=== PATIENT | male | born 1945 | race Caucasian/White ===

== ENCOUNTER 2020-08-14 12:00 | Outpatient (RCR) | payer MEDICARE, SELFPAY ==
[2015-08-06 17:18] VITALS: BMI 27.8
[2020-08-14] MEDS: COVID-19 VACC, MRNA(PFIZER)/PF 30 MCG/0.3 ML SYRINGE IM (10:37)
[2020-09-04] MEDS: COVID-19 VACC, MRNA(PFIZER)/PF 30 MCG/0.3 ML SYRINGE IM (10:20)
== END 2020-11-11 23:59 ==
LOC: IMMUN 12:00
PROVIDERS: Visit Provider Family Medicine
DX: Z23 Encounter for immunization (principal)
CPT/HCPCS: 0001A; 0002A; 91300

== ENCOUNTER 2025-02-05 20:02 | Observation (INO) | payer MEDICARE, MEDICAID, SELFPAY ==
[2025-02-05] VITALS (13 sets, daily range): BP systolic 120–199; BP diastolic 82–100; PULSE 79–91; RESP 13–18; TEMP 36.8; O2SAT 78–100; BMI 27.8
--- NOTE | 2025-02-05 20:07 | EKG12_ITS ---
Test Reason : CP Blood Pressure : */* mmHG Vent. Rate : 85 BPM Atrial Rate : 85 BPM P-R Int : 232 ms QRS Dur : 102 ms QT Int : 384 ms P-R-T Axes : 74 13 42 degrees QTcB Int : 456 ms Sinus rhythm with sinus arrhythmia with 1st degree A-V block Otherwise normal ECG Confirmed by Alon Hogue ([id number]), editorial specialist VIKTOR BURRELL ([id number]) on 02/06/2025 10:34:25 AM Referred By: Confirmed By: Alon Hogue
--- NOTE | 2025-02-05 20:25 | RAD_ITS ---
PROCEDURE: CHEST PA AND LATERAL 02/05/2025 REASON FOR EXAM: CHEST PAIN TECHNIQUE: Procedure Code: RADCXR Modality: DX Procedure: CHEST PA AND LATERAL COMPARISON: none FINDINGS: No focal consolidation. No pleural effusion or pneumothorax. Cardiac silhouette is within normal limits. No acute fractures. RAD/Chest PA and Lateral IMPRESSION: No focal consolidations. Reading Location: [facility]
--- NOTE | 2025-02-05 20:54 | CT_ITS ---
PROCEDURE: CTA CHST, ABD, PEL W AND/OR WO 02/05/2025 REASON FOR EXAM: UPPER BACK PAIN, UPPER ABD PAIN, HTN TECHNIQUE: Procedure Code: CTCTA.CHAP.2 Modality: CT Procedure: CTA CHST, ABD, PEL W AND/OR WO Coronal and Sagittal reconstruction series were provided. One or more dose reduction techniques were used (e.g., Automated exposure control, adjustment of the mA and/or kV according to patient size, use of iterative reconstruction technique. CONTRAST: Isovue 370 VOLUME: 94 mL RADIATION DOSE SUMMARY: DLP: 1097.38 mGycm COMPARISON: None available. FINDINGS: AORTA: Normal course and caliber of the aorta. No aneurysm or dissection. Mild scattered atherosclerotic calcifications. Major branch vessels are patent, normal in course and caliber. MEDIASTINUM: Unremarkable. No mass or lymphadenopathy. HEART: Normal in size. No pericardial effusion. Mild coronary artery calcifications. LUNGS/PLEURA: Clear. No airspace consolidation or findings of pulmonary edema. No pneumothorax or pleural effusions. Central airways are patent. HEPATOBILIARY: There is mild central mesenteric fat stranding in the upper midabdomen, which is potentially related to mild/early acute pancreatitis. Otherwise, no significant abnormality. No biliary or pancreatic ductal dilatation. GENITOURINARY: No urolithiasis or hydronephrosis. Few small simple appearing left renal cysts. Urinary bladder is underdistended, grossly unremarkable. Enlarged prostate. GI TRACT: Small hiatal hernia. Stomach and small bowel are otherwise unremarkable. No evidence of obstruction or active inflammatory process. Normal appendix. Moderate distal colonic diverticulosis without evidence for active diverticulitis/colitis. PERITONEUM/RETROPERITONEUM: No ascites or free air. No lymphadenopathy. MUSCULOSKELETAL: Evidence of prior left inguinal hernia repair. 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 CT/CTA Chst, Abd, Pel W and/or WO IMPRESSION: 1. No aortic aneurysm or dissection. No acute intrathoracic pathology. 2. Mild mesenteric fat stranding in the upper midabdomen which is potentially r elated to mild/early acute pancreatitis; correlate with serum amylase/lipase. Otherwise, no acute or active inflammatory intra-ab dominal pathology. 3. Small hiatal hernia. Distal colonic diverticulosis without active diverticu litis. Reading Location: [id number]
[2025-02-05 20:57] LABS: Hematocrit 44.9 % (40-54); Hemoglobin 15.5 g/dL (13.0-16.5); Immature Granulocytes Count 0.070 X10^3/uL (0.0-0.0); Mean Corp Hgb Conc 34.5 g/dL (32-36); Mean Corpuscular Volume 92.8 fL (80-94); Mean Platelet Vol. 10.5 fl (6.2-12.0); NRBC Flagged by Analyzer 0 % (0-5); Platelet Count 339 K/mm3 (150-450); RBC Distribution Width CV 13.1 % (11.6-14.6); RBC Distribution Width SD 44.3 fl (35.1-43.9); Red Blood Count 4.84 M/mm3 (4.6-6.2); White Blood Count 12.3 K/mm3 (4.4-11.0)
--- NOTE | 2025-02-05 20:57 | EX.ED.DYSGE1 ---
HPI <Dr. Alfredo Price MD - Last Filed: 02/05/25 23:18> History of Present Illness Chief Complaint: Chest Pain Informant: patient and family (Sister) Narrative Narrative: Patient presenting with spontaneous onset of mid upper back pain between his scapula that started yesterday as he got out of bed. He thought he pulled a muscle. Then today started having upper abdominal pain, he thinks that is due to constipation which he deals with daily and takes prune juice for it daily. He denies any chest discomfort, trouble breathing, or other symptoms. However the pain became really severe and he presents for evaluation because of that. He denies any numbness or tingling in his legs or arms. He denies any near syncope, palpitations, or pleuritic nature of discomfort when he takes a deep breath. It does hurt when he does certain types of twisting movements for the most part sitting up or lying back does not change the pain. It feels like it is on the inside. 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 He does not see a doctor regularly. PFSH <Dr. Alfredo Price MD - Last Filed: 02/05/25 23:18> [facility] Medical History History of stroke Home Medications ?Medication ?Instructions ?Recorded ?Last Taken ?Type No Known/Unobtainable [No Known 10/09/14 Unknown History Home Medications] Allergy/AdvReac Type Severity Reaction Status Date / Time No Known Allergies Allergy Verified 02/05/25 20:03 Social History Smoking Status: Never smoker ROS <Dr. Alfredo Price MD - Last Filed: 02/05/25 23:18> ROS ED Constitutional Constitutional ED: Denies chills or fever(s) Eyes Eyes: Denies change in vision or diplopia ENT ENT ED: Denies rhinorrhea or sore throat Cardiovascular Cardiovascular: Denies chest pain or palpitations Respiratory/Chest Respiratory/Chest: Denies cough or dyspnea Gastrointestinal Gastrointestinal: Reports abdominal pain; Denies diarrhea, nausea or vomiting Genitourinary Genitourinary ED: Denies dysuria or hematuria Musculoskeletal Musculoskeletal: Reports back pain; Denies neck pain Integumentary Denies abscess or rash Neurologic Neurologic: Denies headache(s), paresthesias or weakness Psychiatric Psychiatric: Denies suicidal thoughts EXAM <Dr. Alfredo Price MD - Last Filed: 02/05/25 23:18> Physical Exam Const Vital Signs: 02/05/25 20:03 02/05/25 20:07 02/05/25 21:03 Temperature 98.2 F Temperature Source Oral Pulse Rate 91 88 Respiratory Rate 16 17 Blood Pressure 152/91 H 195/83 H Blood Pressure Mean 111 120 Pulse Ox 100 100 100 Oxygen Delivery Method Room Air Room Air Room Air Oxygen Flow Rate (L/min) 02/05/25 22:00 02/05/25 22:18 02/05/25 22:26 Temperature Temperature Source Pulse Rate 82 81 Respiratory Rate 14 13 Blood Pressure 199/100 H Blood Pressure Mean 133 Pulse Ox 99 78 100 Oxygen Delivery Method Room Air Room Air Oxygen Flow Rate (L/min) 02/05/25 22:29 02/05/25 22:30 02/05/25 22:45 Temperature Temperature Source Pulse Rate 82 79 84 Respiratory Rate 14 13 Blood Pressure 189/85 H 194/85 H 190/90 H Blood Pressure Mean 119 111 111 Pulse Ox 100 100 100 Oxygen Delivery Method Nasal Cannula Oxygen Flow Rate (L/min) 2 02/05/25 23:00 02/05/25 23:00 02/05/25 23:15 Temperature Temperature Source Pulse Rate 86 83 89 Respiratory Rate 17 15 18 Blood Pressure 192/88 H 192/88 H 179/87 H Blood Pressure Mean 122 114 112 Pulse Ox 100 100 Oxygen Delivery Method Nasal Cannula Oxygen Flow Rate (L/min) 2 02/05/25 23:30 02/05/25 23:45 02/06/25 00:00 Temperature Temperature Source Pulse Rate 83 85 84 Respiratory Rate 17 18 16 Blood Pressure 179/85 H 120/82 H 191/84 H Blood Pressure Mean 108 95 119 Pulse Ox 99 100 Oxygen Delivery Method Room Air Oxygen Flow Rate (L/min) 02/06/25 00:00 02/06/25 00:06 02/06/25 00:15 Temperature Temperature Source Pulse Rate 88 86 86 Respiratory Rate 15 15 19 H Blood Pressure 191/84 H 184/88 H Blood Pressure Mean 111 112 Pulse Ox 99 99 99 Oxygen Delivery Method Room Air Oxygen Flow Rate (L/min) 02/06/25 00:30 02/06/25 00:45 02/06/25 01:00 Temperature Temperature Source Pulse Rate 92 88 92 Respiratory Rate 18 12 16 Blood Pressure 170/97 H 175/83 H 180/88 H Blood Pressure Mean 112 108 118 Pulse Ox 77 99 100 Oxygen Delivery Method Room Air Oxygen Flow Rate (L/min) 02/06/25 01:27 02/06/25 01:31 Temperature 98.2 F Temperature Source Pulse Rate 92 89 Respiratory Rate 18 Blood Pressure 186/95 H 178/88 H Blood Pressure Mean 118 Pulse Ox 98 Oxygen Delivery Method Oxygen Flow Rate (L/min) Positive well nourished and well developed General Appearance ED: well developed and NAD HEENT Reports moist mucous membranes normocephalic and atraumatic Eyes PERRL and EOMs intact bilaterally Neck full ROM and supple Chest Wall inspection of chest normal and palpation of chest normal Resp normal respiratory effort and clear to auscultation bilaterally Cardio regular rate, regular rhythm and no murmurs GI non-tender and non-distended GI Narrative: No palpable pulsatile mass. Auscultation: normoactive bowel sounds Palpation: soft Back/Spine no CVA tenderness Back/Spine Narrative: For range of motion without discomfort or limitation, no reproducible tenderness. Normal inspection no rash. General Back: other FROM Extremity normal to inspection Extremity Narrative: Equal 2+/4 radial and posterior tibial pulses bilaterally. General Extremety ED: Negative for edema, pulses abnormal or tenderness General Extremity: Negative for edema or pulses abnormal Neuro oriented x3, CN's II-XII intact bilaterally and no sensory deficits noted Sensorium / Orientation: awake and alert Motor Exam: strength 5/5 throughout Psych Psych Narrative: A little anxious, states he is in a lot of pain in his back Skin no rashes or lesions noted and no wounds <Dr. Saul Max, DO - Last Filed: 02/06/25 01:38> Physical Exam Const Vital Signs: 02/05/25 20:03 02/05/25 20:07 02/05/25 21:03 Temperature 98.2 F Temperature Source Oral Pulse Rate 91 88 Respiratory Rate 16 17 Blood Pressure 152/91 H 195/83 H Blood Pressure Mean 111 120 Pulse Ox 100 100 100 Oxygen Delivery Method Room Air Room Air Room Air Oxygen Flow Rate (L/min) 02/05/25 22:00 02/05/25 22:18 02/05/25 22:26 Temperature Temperature Source Pulse Rate 82 81 Respiratory Rate 14 13 Blood Pressure 199/100 H Blood Pressure Mean 133 Pulse Ox 99 78 100 Oxygen Delivery Method Room Air Room Air Oxygen Flow Rate (L/min) 02/05/25 22:29 02/05/25 22:30 02/05/25 22:45 Temperature Temperature Source Pulse Rate 82 79 84 Respiratory Rate 14 13 Blood Pressure 189/85 H 194/85 H 190/90 H Blood Pressure Mean 119 111 111 Pulse Ox 100 100 100 Oxygen Delivery Method Nasal Cannula Oxygen Flow Rate (L/min) 2 02/05/25 23:00 02/05/25 23:00 02/05/25 23:15 Temperature Temperature Source Pulse Rate 86 83 89 Respiratory Rate 17 15 18 Blood Pressure 192/88 H 192/88 H 179/87 H Blood Pressure Mean 122 114 112 Pulse Ox 100 100 Oxygen Delivery Method Nasal Cannula Oxygen Flow Rate (L/min) 2 02/05/25 23:30 02/05/25 23:45 02/06/25 00:00 Temperature Temperature Source Pulse Rate 83 85 84 Respiratory Rate 17 18 16 Blood Pressure 179/85 H 120/82 H 191/84 H Blood Pressure Mean 108 95 119 Pulse Ox 99 100 Oxygen Delivery Method Room Air Oxygen Flow Rate (L/min) 02/06/25 00:00 02/06/25 00:06 02/06/25 00:15 Temperature Temperature Source Pulse Rate 88 86 86 Respiratory Rate 15 15 19 H Blood Pressure 191/84 H 184/88 H Blood Pressure Mean 111 112 Pulse Ox 99 99 99 Oxygen Delivery Method Room Air Oxygen Flow Rate (L/min) 02/06/25 00:30 02/06/25 00:45 02/06/25 01:00 Temperature Temperature Source Pulse Rate 92 88 92 Respiratory Rate 18 12 16 Blood Pressure 170/97 H 175/83 H 180/88 H Blood Pressure Mean 112 108 118 Pulse Ox 77 99 100 Oxygen Delivery Method Room Air Oxygen Flow Rate (L/min) 02/06/25 01:27 02/06/25 01:31 Temperature 98.2 F Temperature Source Pulse Rate 92 89 Respiratory Rate 18 Blood Pressure 186/95 H 178/88 H Blood Pressure Mean 118 Pulse Ox 98 Oxygen Delivery Method Oxygen Flow Rate (L/min) [facility] <Dr. Alfredo Price MD - Last Filed: 02/05/25 23:18> [facility] Narrative Medical decision making narrative: 2 view chest x-ray my interpretation is unremarkable. There appears to possibly be a little cephalization in the apices, but overall no significant pulmonary edema. Mediastinum appears to be within normal limits. However given the fact that the patient's blood pressure is 181/83, and with the symptoms he has, I think it would be indicated to obtain CT angiography of the chest abdomen pelvis to evaluate for aortic dissection given his symptoms. Also in the differential is musculoskeletal discomfort, cholecystitis/pancreatitis, GERD, constipation, posterior pneumonia. Other than slightly elevated bilirubin, labs are normal, but his second troponin did go up from 10 to 30, of undetermined significance in context of his EKG which was unremarkable. His blood pressure was very high and while waiting for CT angiography to be obtained I did give him labetalol 10 mg, which brought it down a little bit but not very much. After morphine he said he still was in a lot of pain and feeling like he maybe had some reflux, so we tried a GI cocktail to see if maybe that would help with this was esophageal in etiology, it did not help his back at all but his abdomen is feeling better on reevaluation his abdomen is soft nontender nondistended with negative Landon's and no epigastric tenderness to suggest pancreatitis. His lipase is normal. Also possible is constipation and colonic spasm radiating pain into his back, so I offered an enema which she was amenable to. Lab Data Attestation: I reviewed the patient's lab results. Labs: Laboratory Results - last 24 hr 02/05/25 02/05/25 02/06/25 20:21 22:24 00:20 WBC 12.3 H RBC 4.84 Hgb 15.5 Hct 44.9 MCV 92.8 MCH 32.0 MCHC 34.5 RDW Std Deviation 44.3 H RDW Coeff of Teresa 13.1 Plt Count 339 MPV 10.5 Immature Gran % (Auto) 0.600 Neut % (Auto) 85.5 H Lymph % (Auto) 9.5 L [place] % (Auto) 4.1 Eos % (Auto) 0.0 Baso % (Auto) 0.3 Absolute Neuts (auto) 10.6 H Absolute Lymphs (auto) 1.17 Nucleated RBC % 0 Sodium 138 Potassium 3.7 Chloride 100 Carbon Dioxide 20.2 L Anion Gap 18 H BUN 16 Creatinine 0.97 Estim Creat Clear Calc 65.56 Est GFR (MDRD) Non-Af 79 BUN/Creatinine Ratio 16.4 Glucose 165 H Calcium 10.3 Total Bilirubin 1.66 H Direct Bilirubin 0.57 H AST 27 ALT 22 Alkaline Phosphatase 79 Troponin T High Sens 10 Troponin T Hi Sens 2 Hr 30 H Troponin T Hi Sens 4Hr 60 H* Total Protein 7.1 Albumin 4.2 Globulin 2.9 Lipase 17 Radiography Diagnostic Testing: Clinical Impression(s) from Imaging Studies Chest X-Ray 02/05/25 20:25 IMPRESSION: No focal consolidations. Reading Location: [facility] Chest/Abdomen/Pelvis CTA 02/05/25 20:54 IMPRESSION: 1. No aortic aneurysm or dissection. No acute intrathoracic pathology. 2. Mild mesenteric fat stranding in the upper midabdomen which is potentially related to mild/early acute pancreatitis; correlate with serum amylase/lipase. Otherwise, no acute or active inflammatory intra-abdominal pathology. 3. Small hiatal hernia. Distal colonic diverticulosis without active diverticulitis. Reading Location: [facility] Rhythm Strip Rhythm Strip: Sinus Rhythm Rate: 85 Ectopy: None EKG Initial EKG: Attestation: I personally reviewed and interpreted this EKG as follows: Interpretation: Sinus Rhythm, No Acute Injury Pattern and AV Block (First-degree) Comments: Other than first-degree AV block, other intervals are normal, axis is normal and otherwise the EKG is normal. Prior EKG tracings: available for review (2016) Prior: Changed (First-degree AV block is new otherwise unchanged) <Dr. Saul Max, DO - Last Filed: 02/06/25 01:38> [facility] Lab Data Labs: Laboratory Results - last 24 hr 02/05/25 02/05/25 02/06/25 20:21 22:24 00:20 WBC 12.3 H RBC 4.84 Hgb 15.5 Hct 44.9 MCV 92.8 MCH 32.0 MCHC 34.5 RDW Std Deviation 44.3 H RDW Coeff of Teresa 13.1 Plt Count 339 MPV 10.5 Immature Gran % (Auto) 0.600 Neut % (Auto) 85.5 H Lymph % (Auto) 9.5 L [place] % (Auto) 4.1 Eos % (Auto) 0.0 Baso % (Auto) 0.3 Absolute Neuts (auto) 10.6 H Absolute Lymphs (auto) 1.17 Nucleated RBC % 0 Sodium 138 Potassium 3.7 Chloride 100 Carbon Dioxide 20.2 L Anion Gap 18 H BUN 16 Creatinine 0.97 Estim Creat Clear Calc 65.56 Est GFR (MDRD) Non-Af 79 BUN/Creatinine Ratio 16.4 Glucose 165 H Calcium 10.3 Total Bilirubin 1.66 H Direct Bilirubin 0.57 H AST 27 ALT 22 Alkaline Phosphatase 79 Troponin T High Sens 10 Troponin T Hi Sens 2 Hr 30 H Troponin T Hi Sens 4Hr 60 H* Total Protein 7.1 Albumin 4.2 Globulin 2.9 Lipase 17 Radiography Diagnostic Testing: Clinical Impression(s) from Imaging Studies Chest X-Ray 02/05/25 20:25 IMPRESSION: No focal consolidations. Reading Location: [facility] Chest/Abdomen/Pelvis CTA 02/05/25 20:54 IMPRESSION: 1. No aortic aneurysm or dissection. No acute intrathoracic pathology. 2. Mild mesenteric fat stranding in the upper midabdomen which is potentially related to mild/early acute pancreatitis; correlate with serum amylase/lipase. Otherwise, no acute or active inflammatory intra-abdominal pathology. 3. Small hiatal hernia. Distal colonic diverticulosis without active diverticulitis. Reading Location: [facility] Management Discussion w/another healthcare provider: Hospitalist and Boarding Mother Treatment and Re-Evaluation :: The patient was signed out to me while awaiting the results of his laboratory studies. His troponin was initially 10 then increased by 20 points to a value of 30 at the 2-hour elvira. Therefore a 4-hour troponin was obtained and this increased by 30 points to a value of 60. The CTA of the chest abdomen and pelvis did not reveal any dissection or pulmonary embolus or lung pathology. It did document potential development of early/acute pancreatitis but his lipase is normal and his pain is not located in the abdomen going against this. Secondary to the elevated troponins I discussed the case with salesperson china and glassware on-call Dr. Hogue. He reviewed the EKG and states based on the patient reporting his pain began around noon and then increased around 5 or 6 PM that the timing does not correlate with acute coronary syndrome especially as the first troponin was normal. He feels that the elevation is related to hypertension. Therefore he does not recommend starting a heparin drip. He states that the patient can be admitted to medicine for continued evaluation of his discomfort and hypertension as well as troponin elevation and that he can undergo a stress echo and formal echo to further assess the cause of his elevated enzymes and pain. Therefore the case was discussed with the hospitalist who agrees to except the patient for continued care. I did add a nitro trial as the patient has had a GI cocktail as well as fentanyl and morphine with minimal symptom improvement. Discharge Plan Triage Chief Complaint: Chest Pain ED Provider: Alfredo Price Dx/Rx/DC Orders Clinical Impression: Hypertension, Elevated troponin, Intractable back pain Prescriptions: No Action No Known Home Medications Primary Care Provider: Care Physician,No Primary Referrals: Care Physician,No Primary [Primary Care Provider] - Print Language: Ukrainian Disposition Disposition: Acute Care [facility]
[2025-02-05 21:39] LABS: Anion Gap 18 (5-15); BUN 16 mg/dL (4-19); BUN/Creat Ratio 16.4 RATIO (10-20); Calcium,Total 10.3 mg/dL (7.6-11.0); Carbon Dioxide 20.2 mmol/L (21.0-32.0); Chloride 100 mmol/L (98-108); Estimated Creatinine Clearance 65.56 ml/min (50-250); Glucose 165 mg/dL (70-99); Potassium 3.7 mmol/L (3.3-5.1); Troponin T High Sensitivity 10 ng/L (<=22)
[2025-02-05] MEDS: fentaNYL 100 MCG/2 ML Ampul 50 MCG IV (21:49)
[2025-02-05] MEDS: Lidocaine 2% Viscous15 ML UDC 15 ML PO (22:36)
[2025-02-05 23:01] LABS: AST(SGOT) 27 U/L (<=37); Alanine Aminotransfer ALT/SGPT 22 U/L (<=46); Albumin, Serum 4.2 g/dL (3.4-4.8); Alkaline Phosphatase 79 U/L (40-129); Bilirubin, Direct 0.57 mg/dL (0.00-0.30); Globulin 2.9 g/dL (2.2-4.2); Lipase 17 U/L (13-75)
[2025-02-05 23:14] LABS: Troponin T High Sens 2 HR 30 ng/L (<=22)
[2025-02-06] VITALS (17 sets, daily range): BP systolic 143–191; BP diastolic 71–97; PULSE 76–92; RESP 12–19; TEMP 36.8–37.1; O2SAT 77–100
[2025-02-06 00:57] LABS: Troponin T High Sens 4 HR 60 ng/L (<=22)
[2025-02-06] MEDS: Nitroglycerin SL (ED/IMG/CATH) 0.4 MG TABLET SL ×3 (01:27→01:52)
--- NOTE | 2025-02-06 01:27 | HP.PCM.HOS_ITS ---
HPI - General General Date of Admission: 02/06/25 Date of Service: 02/06/25 Chief Complaint: Back pain, abdominal pain. 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 He denies any chest discomfort or dyspnea with his current presentation. In the ED he notes primarily at this time he is hurting in his back between his shoulder blades but not superficially and rates it 7-8 out of 10 in severity, aching severe. Workup in the ED included T98.2, heart rate 91, BP 152/91, respiratory rate 16, 100% on room air desaturating the ED down to 78% on room air however most recent repeat vitals heart rate 84, BP 191/84, respiratory rate 16, 100% on room air, CBC with WBC 12.3, Heenan 15.5, platelet 339 with left shift, CMP with carbon oxide 20.2, anion gap 18, BUN/creatinine 16/0.97, GFR 79, glucose 165, T. bili 1.66, D bili 0.57 otherwise hepatic profile unremarkable, lipase 17, initial troponin 10 with repeat delta 2-hour 30, repeat 4-hour troponin 60, chest x-ray with no acute cardiopulmonary findings, CTA chest/abdomen/pelvis with no aortic aneurysm or dissection and no acute intrathoracic pathology, mild mesenteric fat stranding in the upper mid abdomen possibly related with mild/early acute pancreatitis otherwise no acute or active inflammatory findings or intra-abdominal pathology, small hiatal hernia, distal colonic diverticulosis without any acute diverticulitis, EKG with sinus rhythm with first-degree AV block with no acute evidence of ischemia. In the ED patient administered Zofran 4 mg IV x 1, morphine 4 mg IV x 1, GI cocktail, labetalol 10 mg IV x 1, fentanyl 50 mcg IV x 1, sublingual nitroglycerin. ED discussed case with Cardiology who noted belief the troponin is elevated secondary to his elevated BP and noncardiac and recommended stress ECHO and formal ECHO also with Cardiology involvement if these were noted to be abnormal. [facility] Medical History (Updated 02/06/25 @ 01:[address] Tess Benjamin MD) CKD (chronic kidney disease), stage II History of stroke Home Medications ?Medication ?Instructions ?Recorded ?Last Taken ?Type No Known/Unobtainable [No Known 5 Unknown History Home Medications] Allergy/AdvReac Type Severity Reaction Status Date / Time No Known Allergies Allergy Verified 02/05/25 20:03 Family History (Updated 02/06/25 @ 01:[address] Tess Benjamin MD) Mother CVA (cerebral vascular accident) Hypertension Heart disease Father History of venous thromboembolism Malaria Surgical History (Updated 02/06/25 @ 01:[address] Tess Benjamin MD) S/P bilateral cataract extraction History of bilateral inguinal hernia repair Social History (Updated 02/06/25 @ 01:[address] Tess Benjamin MD) household members: other details: Lives with his sister. Smoking Status: Never smoker alcohol intake: never substance use type: does not use ROS ROS Narrative Admission Review of Systems: CONSTITUTIONAL: No weight loss, fever, chills, + weakness or fatigue. HEENT: Eyes: No visual loss, blurred vision, double vision or yellow sclerae. Ears, Nose, Throat: No hearing loss, sneezing, congestion, runny nose or sore throat. SKIN: No rash or itching, lesions, wounds. CARDIOVASCULAR: No chest pain, chest pressure or chest discomfort, palpitations, edema, orthopnea, syncopal events. RESPIRATORY: No shortness of breath, cough or sputum, wheezing, hemoptysis. GASTROINTESTINAL: + Abdominal discomfort/possibly constipation. No anorexia, nausea, vomiting, diarrhea, melena, BRBPR. GENITOURINARY: No dysuria, frequency, urgency or retention. NEUROLOGICAL: No headache, dizziness, syncope, paralysis, ataxia, numbness or tingling in the extremities, focal weakness, change in bowel or bladder control, seizure. MUSCULOSKELETAL: + muscle, back pain, joint pain or stiffness. HEMATOLOGIC: No anemia, bleeding or bruising. LYMPHATICS: No enlarged nodes. No history of splenectomy. PSYCHIATRIC: No history of depression or anxiety. ENDOCRINOLOGIC: No reports of sweating, cold or heat intolerance. No polyuria or polydipsia. ALLERGIES: No history of asthma, hives, eczema or rhinitis. Vital Signs Vital Signs Vital Signs: 02/05/25 20:03 02/05/25 20:07 02/05/25 21:03 Temperature 98.2 F Temperature Source Oral Pulse Rate 91 88 Respiratory Rate 16 17 Blood Pressure 152/91 H 195/83 H Blood Pressure Mean 111 120 Pulse Ox 100 100 100 Oxygen Delivery Method Room Air Room Air Room Air Oxygen Flow Rate (L/min) 02/05/25 22:00 02/05/25 22:18 02/05/25 22:26 Temperature Temperature Source Pulse Rate 82 81 Respiratory Rate 14 13 Blood Pressure 199/100 H Blood Pressure Mean 133 Pulse Ox 99 78 100 Oxygen Delivery Method Room Air Room Air Oxygen Flow Rate (L/min) 02/05/25 22:29 02/05/25 22:30 02/05/25 22:45 Temperature Temperature Source Pulse Rate 82 79 84 Respiratory Rate 14 13 Blood Pressure 189/85 H 194/85 H 190/90 H Blood Pressure Mean 119 111 111 Pulse Ox 100 100 100 Oxygen Delivery Method Nasal Cannula Oxygen Flow Rate (L/min) 2 02/05/25 23:00 02/05/25 23:00 02/05/25 23:15 Temperature Temperature Source Pulse Rate 86 83 89 Respiratory Rate 17 15 18 Blood Pressure 192/88 H 192/88 H 179/87 H Blood Pressure Mean 122 114 112 Pulse Ox 100 100 Oxygen Delivery Method Nasal Cannula Oxygen Flow Rate (L/min) 2 02/05/25 23:30 02/05/25 23:45 02/06/25 00:00 Temperature Temperature Source Pulse Rate 83 85 84 Respiratory Rate 17 18 16 Blood Pressure 179/85 H 120/82 H 191/84 H Blood Pressure Mean 108 95 119 Pulse Ox 99 100 Oxygen Delivery Method Room Air Oxygen Flow Rate (L/min) 02/06/25 00:00 02/06/25 00:06 02/06/25 00:15 Temperature Temperature Source Pulse Rate 88 86 86 Respiratory Rate 15 15 19 H Blood Pressure 191/84 H 184/88 H Blood Pressure Mean 111 112 Pulse Ox 99 99 99 Oxygen Delivery Method Room Air Oxygen Flow Rate (L/min) 02/06/25 00:30 02/06/25 00:45 02/06/25 01:00 Temperature Temperature Source Pulse Rate 92 88 92 Respiratory Rate 18 12 16 Blood Pressure 170/97 H 175/83 H 180/88 H Blood Pressure Mean 112 108 118 Pulse Ox 77 99 100 Oxygen Delivery Method Room Air Room Air Oxygen Flow Rate (L/min) Weight Weight: 204 lb 12.8 oz Body Mass Index (BMI) 27.8 Physical Exam Narrative Physical Examination: General: Awake, alert, oriented x 3 and cooperative, seated upright in the ED bed in no apparent distress, notes ongoing persistent pain between his shoulder blades rating it 7-8 out of 10 in severity. Skin: Normal color, normal turgor, no icterus, no cyanosis except occasional stage ecchymoses, abrasion. HEENT: AT/NC, EOMI, PERRLA, MMM, no carotid bruits or JVD noted. Lungs: Mildly diminished, greater bases, appropriate effort, no rales, ronchi or wheezing. Heart: Regular rate and rhythm; no gallop, rub audible. Abdomen: Soft, overweight, NTTP including the epigastric region, ND, mildly hyperactive BS, no appreciated HSM. Extremities: No cyanosis, clubbing, or edema. Neurological: Patient awake, alert, oriented as noted, cognitive function intact; pupils equally reactive to light and accommodation, cranial nerves grossly normal, moving all 4 extremities, no focal deficits, strength moderately globally decreased secondary to acute presentation complaints. Psychiatric: Affect appears fatigued otherwise normal, no acute evidence of depressive or anxiety feelings. Results Lab / Micro Data 02/05/25 20:21 02/05/25 20:21 Labs: Laboratory Results - last 24 hr 02/05/25 20:21: WBC 12.3 H, RBC 4.84, Hgb 15.5, Hct 44.9, MCV 92.8, MCH 32.0, MCHC 34.5, RDW Std Deviation 44.3 H, RDW Coeff of Teresa 13.1, Plt Count 339, MPV 10.5, Immature Gran % (Auto) 0.600, Neut % (Auto) 85.5 H, Lymph % (Auto) 9.5 L, [place] % (Auto) 4.1, Eos % (Auto) 0.0, Baso % (Auto) 0.3, Absolute Neuts (auto) 10.6 H, Absolute Lymphs (auto) 1.17, Nucleated RBC % 0, Sodium 138, Potassium 3.7, Chloride 100, Carbon Dioxide 20.2 L, Anion Gap 18 H, BUN 16, Creatinine 0.97, Estim Creat Clear Calc 65.56, Est GFR (MDRD) Non-Af 79, BUN/Creatinine Ratio 16.4, Glucose 165 H, Calcium 10.3, Troponin T High Sens 10 02/05/25 22:24: Total Bilirubin 1.66 H, Direct Bilirubin 0.57 H, AST 27, ALT 22, Alkaline Phosphatase 79, Troponin T Hi Sens 2 Hr 30 H, Total Protein 7.1, Albumin 4.2, Globulin 2.9, Lipase 17 02/06/25 00:20: Troponin T Hi Sens 4Hr 60 H* Rhythm Strip Rhythm Strip: Sinus Rhythm Rate: 85 Ectopy: None Imaging Radiology Impression Chest X-Ray 02/05/25 20:25 IMPRESSION: No focal consolidations. Reading Location: [facility] Chest/Abdomen/Pelvis CTA 02/05/25 20:54 IMPRESSION: 1. No aortic aneurysm or dissection. No acute intrathoracic pathology. 2. Mild mesenteric fat stranding in the upper midabdomen which is potentially related to mild/early acute pancreatitis; correlate with serum amylase/lipase. Otherwise, no acute or active inflammatory intra- abdominal pathology. 3. Small hiatal hernia. Distal colonic diverticulosis without active diverticulitis. 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 #1. Back pain, epigastric pain with mild stranding, possibly early pancreatitis however lipase normal of note with elevated cardiac enzyme of unclear significance suspected secondary to likely HTN emergency as noted #2: Will admit to PCU, maintain on telemetry monitoring to be cautious, we will continue to judiciously hydrate, maintain on IV PPI, will repeat lipase level in AM, continue to trend cardiac enzymes, magnesium level requested, FLP in a.m. will continue ED initiated consult with cardiology with n.p.o. status for stress ECHO. In addition formal ECHO will be requested per Cardiology recommendation. ASA, TD NG, morphine. Will defer heparin drip unless trop rises notably per Cardiology recommendation. #2. Elevated BP/Hypertensive emergency without hypertensive diagnosis: Again patient may certainly be a chronic hypertensive patient but does not see a physician and does not take any medications, BP notably above goal, labetalol administered in the ED, given unclear exact history at this time will initiate on IV hydralazine as well as IV labetalol if necessary, given the severity of his pain certainly could be related and if his blood pressure despite pain control remains elevated then would add oral regimen. Given #1 will apply NG TD additionally. #3. Hyperglycemia with no reported diabetic history: Admission glucose 165, no diabetic history but patient does not see a physician regularly nor does he take medications, hemoglobin A1c has been requested. #4. Mild hyperbilirubinemia: Hepatic profile with T. bili 1.66, D bili 0.57, mildly above normal, CT scan with contrast with noted mild central mesenteric fat stranding in the upper mid abdomen but otherwise no biliary or pancreatic alteration or ductal dilatation, will hydrate and repeat CMP in AM. If further elevated certainly consider liver ultrasound. #5. Chart reported history of previous CVA: Not on any medications, unclear if he is truly hypertensive, will initiate on aspirin therapy, hemoglobin A1c pending given hyperglycemia, will have as needed hypertensive regimen until pain is controlled with oral transition if clinically appropriate, FLP in AM. Chronic Kidney Disease Stage II per GFR trend: Admission BUN/Cr 16/0.97, GFR 79, baseline renal function 0.92 remotely in 2016 up to 1.1, repeat BMP in AM. #6. DVT prophylaxis: Lovenox. #7. CODE status: Patient HCPOA and living will are not in place but he notes his sister who is present would be his medical decision-maker if necessary. Discussed CODE status at length including difference between FULL code, DNR-CCA and DNR-CC status. Following discussions about the differences in these status, requested Full Code status. Charges/Coding Visit Charges Inpatient E&M: 94302 Init Hosp L3
[2025-02-06 01:59] LABS: Magnesium 1.8 mg/dL (1.5-2.2)
--- OUTSIDE RECORDS SUMMARY | 2025-02-06 02:00 | XMS RPT_ITS | CCD ---
Author Organization [facility] Inform ion Partnership [employer] [facility] Care Team Providers Care Helpdesk Analyst Name Role Phone Unavailable Unavailable Unavailable Encounters Encounter Date Encounter Type Care Provider Facility Start: 08-14-2020 End: 08-14-2020 Discharged Recurring [facility]-Immunizations Immunizations Immunization Date Immunization Notes Care Provider Fa cility 09-04-2020 Covid (Pfizer) [facility] Work Phone: 08-14-2020 Covid (Pfizer) [facility] Work Phone: Payers Date Payer Category Payer Private Health Insurance SELF PA[employer]AN CE [id number] Medicaid SELF PAY INSURANCE [id number] Medicare SELF PAY INSURANCE [id number] Self-pay SELF PAY INSURANCE [id number] Social History Date Type Detail Facility Start: 08-06-2015 Tobacco smoking stat [facility] Unknown if ever smoked [facility] Work Phone: Start: 1945 Sex Assigned At Male [facility] Work Phone: Goals Date Patient Goal Desired Activity /State Chief Complaint and Reason for Visit Chief Complaint PFIZER VACCINE Advance Directives Advance Directive Response Recorded Date/ Time Living Will No August 06, 2015 6:28pm Power of Tool Planner No August 05 6:28pm Assessments No Assessments Information Available Additional Source Comments FOR RECORDS PERTAINING TO PATIENTS WHO ARE OR HAVE BEEN ENROLLED IN A CHEMICAL DEPENDENCY/SUBSTANCEABUSE PROGRAM, SOME INFORMATION MAY BE OMITTED. This clinical summary was aggregated from multiple sources. Caution should be exercised in using it in the provision of clinical care. This summary normalizes information from multiple sources, and as a consequence, information in this document may materially change the coding, format and clinical context of patient data. In addition, data may be omitted in some cases. CLINICAL DECISIONS SHOULD BE BASED ON THE PRIMARY CLINICAL RECORDS. [facility]. provides no warranty or guarantee of the accuracy or completeness of information in this document.
--- NOTE | 2025-02-06 02:22 | ECHOD_ITS ---
Reason For Study Reason For Study: CHEST PAIN Procedure This was a 2D Doppler, Color Flow transthoracic echocardiogram. Exam performed in department. Left Ventricle Normal LV size. Mild concentric left ventricular hypertrophy. The left ventricular ejection fraction is 65 %. Stage 1 diastolic dysfunction. Right Ventricle Normal right ventricle. Atria The left and right atria are normal. Mitral Valve Trivial mitral valve insufficiency. Tricuspid Valve Trivial tricuspid valve insufficiency. Normal pulmonary artery pressure. Aortic Valve Trileaflet aortic valve. Mild focal calcification. Pulmonic Valve The pulmonic valve is not well visualized. Great Vessels The ascending aorta is mildly dilated. Pericardium/Pleural No pericardial effusion. MMode/2D Measurements & Calculations LVIDd: 4.5 cm IVSd: 1.3 cm LVOT diam: 2.0 cm LVIDs: 2.6 cm LVPWd: 1.3 cm LVOT area: 3.2 cm2 RVDd: 3.8 cm FS: 42.1 % asc Aorta Diam: 4.1 cm LAV(MOD-bp): 50.4 ml LVAd ap4: 27.4 cm2 LAV(MOD-bp) Indexed: 23.7 ml/m2 LVLd ap4: 8.1 cm LAV(MOD-sp2): 55.2 ml EDV(MOD-sp4): 77.5 ml LAV(MOD-sp4): 40.8 ml EDV(sp4-el): 78.7 ml LVAs ap4: 11.6 cm2 LVLs ap4: 6.0 cm ESV(MOD-sp4): 19.7 ml ESV(sp4-el): 19.0 ml EF(MOD-sp4): 74.5 % EF(sp4-el): 75.9 % LVAd ap2: 25.9 cm2 SV(MOD-sp4): 57.8 ml SV(MOD-sp2): 51.7 ml LVLd ap2: 7.9 cm SI(MOD-sp4): 27.1 ml/m2 SI(MOD-sp2): 24.3 ml/m2 EDV(MOD-sp2): 72.5 ml EDV(sp2-el): 71.5 ml LVAs ap2: 12.3 cm2 LVLs ap2: 6.4 cm ESV(MOD-sp2): 20.8 ml ESV(sp2-el): 20.2 ml EF(MOD-sp2): 71.3 % SV(sp4-el): 59.8 ml Ao sinus diam: 3.[address] Junction: 3.1 cm LA dimension(2D): 3.6 cm LA A4 area: 16.4 cm2 RA A4 area: 12.1 cm2 TAPSE: 1.9 cm Time Measurements MV dec time: 0.12 sec Doppler Measurements & Calculations MV E max kendrick: 86.2 cm/sec Lat Peak E' Kendrick: 13.3 cm/sec Med Peak E' Kendrick: 11.3 cm/sec MV A max kendrick: 107.2 cm/sec E/E' lat: 6.5 E/E' med: 7.6 MV E/A: 0.80 MV dec slope: 708.5 cm/sec2 Ao V2 max: 184.7 cm/sec LV V1 max: 140.7 cm/sec Ao max P.6 mmHg LV V1 max P.9 mmHg Ao V2 mean: 134.6 cm/sec LV V1 mean P.5 mmHg Ao mean P.9 mmHg LV V1 mean: 98.7 cm/sec Ao V2 VTI: 36.1 cm LV V1 VTI: 29.3 cm AV (velocity ratio): 0.81 HCRIS(I,D): 2.6 cm2 CHRIS(V,D): 2.4 cm2 SV(LVOT): 93.6 ml PA V2 max: 93.5 cm/sec TR max kendrick: 241.5 cm/sec TR max P.6 mmHg ECHO/Echo Complete Interpretation Summary The left ventricular ejection fraction is 65 %. Stage 1 diastolic dysfunction. Trileaflet aortic valve. Mild focal calcification. The ascending aorta is mildly dilated. Ordering Physician: Tess Benjamin Performed By: Concha Sampson RDCS
--- NOTE | 2025-02-06 02:22 | EKG12_ITS ---
Test Reason : CP ADMIT Blood Pressure : */* mmHG Vent. Rate : 87 BPM Atrial Rate : 87 BPM P-R Int : 272 ms QRS Dur : 106 ms QT Int : 380 ms P-R-T Axes : 70 8 35 degrees QTcB Int : 457 ms Sinus rhythm with 1st degree A-V block with Premature atrial complexes Otherwise normal ECG When compared with ECG of 05-Feb-2025 20:10, MANUAL COMPARISON REQUIRED DATA IS UNCONFIRMED Confirmed by Alon Hogue [id number]), editorial clerk CHRISTIANO MATHIS ([id number]) on 02/06/2025 8:13:52 AM Referred By: Confirmed By: Alon Hogue
[2025-02-06] MEDS: 0.9% Normal Saline (1000mL) 1,000 ML 150 ML IV (03:25)
[2025-02-06] MEDS: Pantoprazole Sodium 40 MG in 0.9% Normal Saline (100mL MB+) 100 ML 330 MG IV ×2 (03:25→10:11)
--- NOTE | 2025-02-06 05:55 | STEWCON_ITS ---
Reason For Study Reason For Study: Elevated Troponins; HTN Stress Results Protocol: Kenny Protocol Maximum Predicted HR: 139 bpm Target HR: 118 bpm % Maximum Predicted HR: 98 % DurationHeart Rate Stage (mm:ss) (bpm) BP Comment Baseline 87 150/78No Chest Pain Kenny Protocol Stage I 3:00 122 180/72No Chest Pain; Moderate Dyspnea; Mild Back Pain Kenny Protocol Stage II 0:30 136 / No Chest Pain; Moderate Dyspnea; Mild Back Pain; Clifford Leg Discomfort Recovery 98 160/82No Chest Pain; Mild Back Pain; No Dyspnea Stress Duration: 3:30 mm:ss Maximum Stress HR: 136 bpm METS: 5 Baseline Echocardiogram Findings The left ventricular ejection fraction is 65 %. Left ventricular systolic function is normal. Stress Echo Wall motion Data Resting WM Intermediate WM Stress WM Resting Wall Motion Wall Motion Stress No regional wall motion abnormalities Post exercise stress, all LV wall noted. segments hyper dynamic. Estimated LVEF poststress more than 75%. No echo evidence of ischemia. EKG Data The baseline ECG demonstrates normal sinus rhythm with at rate of _ beats per minute. Patient achieved 100% of the maximal predicted heart rate. No ECG changes suggestive of ischemia. ECHO/Stress Test Echo W/Contrast Interpretation Summary Patient achieved 100% of the maximal predicted heart rate. No ECG changes sugge stive of ischemia. Post exercise stress, all LV wall segments hyper dynamic. Estimated LVEF postst ress more than 75%. No echo evidence of ischemia. Ordering Physician: Tess Benjamin Referring Physician: Tess Benjamin Performed By: Concha Sampson RDCS
[2025-02-06 06:04] LABS: Hematocrit 43.0 % (40-54); Hemoglobin 14.7 g/dL (13.0-16.5); Immature Granulocytes Count 0.070 X10^3/uL (0.0-0.0); Mean Corp Hgb Conc 34.2 g/dL (32-36); Mean Corpuscular Volume 93.9 fL (80-94); Mean Platelet Vol. 10.0 fl (6.2-12.0); NRBC Flagged by Analyzer 0 % (0-5); Platelet Count 315 K/mm3 (150-450); RBC Distribution Width CV 13.2 % (11.6-14.6); RBC Distribution Width SD 45.8 fl (35.1-43.9); Red Blood Count 4.58 M/mm3 (4.6-6.2); White Blood Count 15.6 K/mm3 (4.4-11.0)
[2025-02-06 06:36] LABS: AST(SGOT) 29 U/L (<=37); Alanine Aminotransfer ALT/SGPT 19 U/L (<=46); Albumin, Serum 4.3 g/dL (3.4-4.8); Alkaline Phosphatase 79 U/L (40-129); Anion Gap 16 (5-15); BUN 14 mg/dL (4-19); BUN/Creat Ratio 16.1 RATIO (10-20); Calcium,Total 9.4 mg/dL (7.6-11.0); Carbon Dioxide 23.3 mmol/L (21.0-32.0); Chloride 98 mmol/L (98-108); Estimated Creatinine Clearance 85.62 ml/min (50-250); Globulin 2.7 g/dL (2.2-4.2); Glucose 154 mg/dL (70-99); Lipase 21 U/L (13-75); Potassium 3.8 mmol/L (3.3-5.1)
[2025-02-06] MEDS: 0.9% Saline Lock 10 ML Syringe IV ×2 (08:25→11:48)
--- NOTE | 2025-02-06 14:03 | DCINST_ITS ---
Discharge Instructions DC O2, CPAP, BIPAP needs Home O2 Discharge instructions: No Dressing / Incision Discharge Activity: Return to Normal Activity Weight Bearing Status: Full weight bearing Follow Up Care Test Results: Test results from this visit will be discussed in further detail at your follow- up appointment, if applicable. Discharge Plan Admission Admit Date/Time: 02/06/25 01:32 Primary Reason for Your Visit: Noncardiac chest pain Attending Provider: Sage Landrum Primary Care Provider: Care Physician,No Primary Consulting Providers: Tess Benjamin Instructions Additional Instructions / Restrictions: Follow-up with a primary care physician to establish a physician within the next month Discharge Orders/Prescriptions Prescriptions: No Action No Known Home Medications Referrals / Follow Up: Care Physician,No Primary [Primary Care Provider] - Disposition Disposition (needs filled in before D/C Order can be placed): Home, Self Care
--- NOTE | 2025-02-06 14:05 | PCM.DC.SUM ---
Providers Date of Admission: 02/06/25 Date of Discharge: 02/06/25 Primary Care Physician: No Primary Care Phys Reason For Visit: BACK PAIN/ABD PAIN, ELEVATED TROP, HTN EMERGENCY Diagnosis Discharge Diagnosis (1) Intractable back pain: Status: Acute Code(s): M54.9 - Dorsalgia, unspecified (2) Elevated troponin: Status: Acute Code(s): R79.89 - Other specified abnormal findings of blood chemistry Plan 1. Noncardiac chest pain #2 elevated troponin-etiology unclear #3 essential hypertension #4 musculoskeletal back pain Medications at Discharge Home Medications amlodipine 5 mg tablet 5 mg PO DAILY #30 tabs 02/06/25 Hospital Course Operations None Procedures 2-D Echocardiogram and Stress test (Stress echocardiogram) Summary of Care Provided Minutes Spent on Discharge: 45 Hospital Course: This 79-year-old white male was seen in the emergency room at [facility] with complaints of chest pain radiating into his back area. He denied any shortness of breath, palpitations, or near syncope. Labs were remarkable for a white blood cell count of 12.3, chemistry profile was unremarkable, glucose was 165, bilirubin was 1.6, patient's first troponin was normal at 10, second troponin 2 hours later was elevated at 30, and the third troponin at 4 hours was elevated at 60. Chest x-ray showed no focal consolidations, CTA of the chest abdomen and pelvis showed mild mesenteric fat stranding which could have been potentially related to early pancreatitis. Patient was placed in observation status on PCU, he was monitored on telemetry and underwent a stress echocardiogram, this was unremarkable. On 02/06/2025, patient was seen and examined: On examination he appeared in good health and spirits. Vital signs as documented. Skin warm and dry and without overt rashes. Neck without JVD, neck was supple, trachea midline, thyroid was normal. Lungs clear bilaterally, normal air movement was noted. Heart exam notable for regular rhythm, normal sounds and absence of murmurs, rubs or gallops. Abdomen unremarkable and without evidence of organomegaly, masses, or abdominal aortic enlargement. Bowel sounds are present, abdomen is not distended. Extremities nonedematous, no cyanosis was noted, no clubbing was noted. Neuro: Cranial nerves II through XII are grossly intact, no focal motor deficits were noted, sensation to light touch and pinprick intact, motor exam 5/5 throughout. Psych: Patient is alert and oriented x3, he does not appear anxious or depressed, he does not appear agitated. Patient was discharged home in stable condition on 02/06/2025 Weight / BMI Weight Weight: 90.9 kg Body Mass Index (BMI) 2.5 ABG / Lab / Microbiology Data 02/06/25 05:22 02/06/25 05:22 Laboratory: Laboratory Results - last 24 hr 02/05/25 20:21: WBC 12.3 H, RBC 4.84, Hgb 15.5, Hct 44.9, MCV 92.8, MCH 32.0, MCHC 34.5, RDW Std Deviation 44.3 H, RDW Coeff of Teresa 13.1, Plt Count 339, MPV 10.5, Immature Gran % (Auto) 0.600, Neut % (Auto) 85.5 H, Lymph % (Auto) 9.5 L, [place] % (Auto) 4.1, Eos % (Auto) 0.0, Baso % (Auto) 0.3, Absolute Neuts (auto) 10.6 H, Absolute Lymphs (auto) 1.17, Nucleated RBC % 0, Sodium 138, Potassium 3.7, Chloride 100, Carbon Dioxide 20.2 L, Anion Gap 18 H, BUN 16, Creatinine 0.97, Estim Creat Clear Calc 65.56, Est GFR (MDRD) Non-Af 79, BUN/Creatinine Ratio 16.4, Glucose 165 H, Calcium 10.3, Troponin T High Sens 10 02/05/25 22:24: Total Bilirubin 1.66 H, Direct Bilirubin 0.57 H, AST 27, ALT 22, Alkaline Phosphatase 79, Troponin T Hi Sens 2 Hr 30 H, Total Protein 7.1, Albumin 4.2, Globulin 2.9, Lipase 17 02/06/25 00:20: Magnesium 1.8, Troponin T Hi Sens 4Hr 60 H* 02/06/25 05:22: WBC 15.6 H, RBC 4.58 L, Hgb 14.7, Hct 43.0, MCV 93.9, MCH 32.1 H, MCHC 34.2, RDW Std Deviation 45.8 H, RDW Coeff of Teresa 13.2, Plt Count 315, MPV 10.0, Immature Gran % (Auto) 0.400, Neut % (Auto) 87.9 H, Lymph % (Auto) 6.3 L, [place] % (Auto) 5.3, Eos % (Auto) 0.0, Baso % (Auto) 0.1, Absolute Neuts (auto) 13.7 H, Absolute Lymphs (auto) 0.98, Nucleated RBC % 0, Sodium 137, Potassium 3.8, Chloride 98, Carbon Dioxide 23.3, Anion Gap 16 H, BUN 14, Creatinine 0.87, Estim Creat Clear Calc 85.62, Est GFR (MDRD) Non-Af 87, BUN/Creatinine Ratio 16.1, Glucose 154 H, Hemoglobin A1c 5.7, Calcium 9.4, Total Bilirubin 1.83 H, AST 29, ALT 19, Alkaline Phosphatase 79, Total Protein 7.0, Albumin 4.3, Globulin 2.7, Albumin/Globulin Ratio 1.6, Lipase 21 Radiography Diagnostic Testing: Radiology Impression Chest X-Ray 02/05/25 20:25 IMPRESSION: No focal consolidations. Reading Location: [facility] Chest/Abdomen/Pelvis CTA 02/05/25 20:54 IMPRESSION: 1. No aortic aneurysm or dissection. No acute intrathoracic pathology. 2. Mild mesenteric fat stranding in the upper midabdomen which is potentially related to mild/early acute pancreatitis; correlate with serum amylase/lipase. Otherwise, no acute or active inflammatory intra-abdominal pathology. 3. Small hiatal hernia. Distal colonic diverticulosis without active diverticulitis. Reading Location: [facility] Echocardiogram 02/06/25 02:22 Interpretation Summary The left ventricular ejection fraction is 65 %. Stage 1 diastolic dysfunction. [place] aortic valve. Mild focal calcification. The ascending aorta is mildly dilated. Ordering Physician: Tess Benjamin Performed By: Concha Sampson RDCS Stress Echocardiogram 02/06/25 05:55 Interpretation Summary Patient achieved 100% of the maximal predicted heart rate. No ECG changes suggestive of ischemia. Post exercise stress, all LV wall segments hyper dynamic. Estimated LVEF poststress more than 75%. No echo evidence of ischemia. Ordering Physician: Tess Benjamin Referring Physician: Tess Benjamin Performed By: Concha Sampson RDCS D/C Instructions Weight Bearing Status: Full weight bearing DC O2, CPAP, BIPAP Needs Home O2 Discharge instructions: No Meaningful Use Info Meaningful Use Meaningful Use Diagnoses (Choose all that apply): None applicable Discharge Plan Admission Admit Date/Time: 02/06/25 01:32 Primary Reason for Your Visit: Noncardiac chest pain Attending Provider: Sage Landrum Primary Care Provider: Care Physician,No Primary Consulting Providers: Tess Benjamin Instructions Additional Instructions / Restrictions: Follow-up with a primary care physician to establish a physician within the next month Discharge Orders/Prescriptions Prescriptions: New amlodipine 5 mg tablet 5 mg PO DAILY Qty: 30 0RF Rx Instructions: start 02/06/25 Referrals / Follow Up: Care Physician,No Primary [Primary Care Provider] - Disposition Disposition (needs filled in before D/C Order can be placed): Home, Self Care Charges/Coding Visit Charges OBSV E&M: 22992 Observ/hosp same date L1
--- NOTE | 2025-02-06 14:20 | CASEMGMT ---
Patient has order for discharge. RN CM in to discuss needs at discharge, at bedside. Patient denies needs at discharge. Patient listed as not having PCP, confirms that patient does not have a PCP. RN CM provided PCP list to and patient. Patient and had no further questions or concerns.
== END 2025-02-06 14:45 | disposition home or self-care (01) ==
LOC: ED 02-06 01:38 → PCU 02-06 01:58
PROVIDERS: Admitting Provider Family Medicine; Emergency Provider Emergency Medicine; Visit Provider Internal Medicine
DX: R07.89 Other chest pain (principal); I16.1 Hypertensive emergency; M54.14 Radiculopathy, thoracic region; I12.9 Hypertensive chronic kidney disease with stage 1 through stage 4 chronic kidney disease, or unspecified chronic kidney disease; Z86.73 Personal history of transient ischemic attack (TIA), and cerebral infarction without residual deficits; R79.89 Other specified abnormal findings of blood chemistry; N18.2 Chronic kidney disease, stage 2 (mild); I44.0 Atrioventricular block, first degree; R73.9 Hyperglycemia, unspecified; E80.7 Disorder of bilirubin metabolism, unspecified
CPT/HCPCS: 36415; 71046; 71275; 74174; 80048; 80053; 80076; 83036; 83690; 83735; 84484; 85025; 93005; 93017; 93306; 93350; 96361; 96365; 96375; 99221; 99285; Q9967; A4216; C8928; G0378; J2405